=== PATIENT | female | born 1935 | race African-American/Black ===

== ENCOUNTER 2017-11-30 06:29 | Inpatient (IN) | payer OTHER, MEDICAID ==
[~2017-11-30] VITALS: Ht 165.1 cm; Wt 76.7 kg
[2017-11-30] MEDS ORDERED: LEVOFLOXACIN 750MG PREMIX 150 ML IV ONE (08:00)
[2017-11-30 08:04] LABS: BASOPHILS % 0.4 % (0.0-2.0); EOSINOPHILS % 0.3 % (0.0-5.0); HEMATOCRIT. 38.6 % (36.0-48.0); HEMOGLOBIN. 12.7 g/dL (12.0-16.0); MEAN CORPUSCULAR HEMOGLOBIN 29.1 pg (28.0-32.0); MEAN CORPUSCULAR VOLUME 88.2 fL (81.0-99.0); MEAN PLATELET VOLUME 8.2 fl (7.4-10.4); MONOCYTES % 5.3 % (2.0-8.0); PLATELET 247 x1000/uL (130-400); RED BLOOD CELL COUNT 4.38 mill/uL (4.2-5.4)
[2017-11-30 08:11] LABS: INR 1.2; PROTHROMBIN TIME 12.1 sec (9.1-11.1)
[2017-11-30 08:16] LABS: CHLORIDE 102 mEq/L (98-107)
[2017-11-30] MEDS ORDERED: POTASSIUM CHLORIDE 20MEQ TABLET SR PO ONE (08:45)
[2017-11-30] MEDS ORDERED: SODIUM CHLORIDE 0.9% 1,000 ML IV ONE (09:13)
[2017-11-30] MEDS ORDERED: LIDOCAINE HCL/PF 1% 2ML VIAL ONE (10:19)
[2017-11-30] MEDS ORDERED: IPRATROPIUM/ALBUTEROL 0.5-3(2.5)MG/3ML NEB INH PRN (12:00)
[2017-11-30] MEDS ORDERED: ACETAMINOPHEN 325MG TABLET PO PRN (12:00)
[2017-11-30] MEDS ORDERED: CLONIDINE 0.1MG TABLET PO PRN (12:00)
[2017-11-30] MEDS ORDERED: MAGNESIUM/ALUMINUM HYDROXIDE/SIMETHICONE 30ML UDC PO PRN (12:00)
[2017-11-30] MEDS ORDERED: HYDROCODONE/ACETAMINOPHEN 5/325MG TABLET PO PRN (12:00)
[2017-11-30] MEDS ORDERED: ACETAMINOPHEN 650MG SUPP PR PRN (12:00)
[2017-11-30] MEDS ORDERED: ONDANSETRON HCL 4MG/2ML INJ IV PRN (12:00)
[2017-11-30] MEDS ORDERED: DIPHENHYDRAMINE 50MG/ML VIAL IV PRN (12:00)
[2017-11-30] MEDS ORDERED: GUAIFENESIN 200MG/10ML SUGAR FREE UDC PO PRN (12:00)
[2017-11-30 12:24] LABS: BG BASE EXCESS -0.3 mmol/L (-2.0-2.0); BG CARBOXYHEMOGLOBIN 0.6 % (0.5-1.5); BG DEOXYHEMOGLOBIN 7.6 % (0.0-5.0); BG HCO3 ACT 23.1 mmol/L (22.0-26.0); BG METHEMOGLOBIN 0.2 % (0.0-1.5); BG OXYGEN SATURATION 92.3 % (92.0-98.5); BG OXYHEMOGLOBIN 91.6 % (94.0-97.0); BG PCO2 33.9 mmHg (35.0-45.0); BG PH 7.451 (7.350-7.450); BG PO2 63.4 mmHg (75.0-100.0); BG SAMPLE SITE RIGHT RADIAL; BG TOTAL HEMOGLOBIN 12.5 g/dL (12.0-18.0); BG VENT MODE ROOM AIR
[2017-11-30 13:14] LABS: CLARITY URINE CLEAR (CLEAR); COLOR URINE YELLOW (YELLOW); KETONES URINE NEGATIVE (NEGATIVE); LEUKOCYTE ESTERASE URINE TRACE (NEGATIVE); NITRITE URINE POSITIVE (NEGATIVE); OCCULT BLOOD URINE NEGATIVE (NEGATIVE); PH URINE 7.5 (4.5-8.0); PROTEIN URINE NEGATIVE (NEGATIVE); SPECIFIC GRAVITY URINE 1.015 (1.005-1.030)
[2017-11-30 15:09] LABS: CREATINE KINASE 66 IU/L (26-192)
[2017-11-30 15:10] LABS: CREATINE KINASE MB FRACTION < 1.0 ng/mL (0.5-3.6)
[2017-11-30 15:21] LABS: T4 FREE 1.37 ng/dL (0.76-1.46)
[2017-11-30] MEDS ORDERED: REGADENOSON 0.4 MG/5 ML IV NR (16:58)
[2017-11-30 17:06] VITALS: BP 134/66
[2017-11-30] MEDS: PANTOPRAZOLE SODIUM 40 MG/VIAL IV SCH (17:43)
[2017-11-30] MEDS: ENOXAPARIN 40MG/0.4ML SYR SUBCUT SCH (17:44)
[2017-11-30 18:00] VITALS: BP 134/66
[2017-11-30] MEDS ORDERED: NA PHOS,M-B/NA PHOS,DI-BA ENEMA 118ML PR PRN (18:00)
[2017-11-30] MEDS ORDERED: SOTA80TA25 PO (18:00)
[2017-11-30] MEDS ORDERED: AMLO10TA4 MT (18:00)
[2017-11-30] MEDS ORDERED: DABI150C MT (18:00)
[2017-11-30] MEDS ORDERED: IPRATROPIUM/ALBUTEROL 0.5-3(2.5)MG/3ML NEB INH SCH (18:00)
[2017-11-30] MEDS ORDERED: OLME40TA18 MT (18:00)
[2017-11-30] MEDS ORDERED: HYDR25TA MT (18:00)
[2017-11-30] MEDS ORDERED: SIMV20TA6 MT (18:00)
[2017-11-30 20:00] VITALS: BP 104/62
[2017-11-30] MEDS: SOTALOL HCL 80MG TABLET PO SCH (21:00)
[2017-11-30] MEDS: DEXT 5%/0.45% NACL 1000ML 1,000 ML IV SCH (21:42)
[2017-11-30] MEDS: ATORVASTATIN CALCIUM 10MG TABLET PO SCH (21:49)
[2017-11-30 23:22] LABS: CREATINE KINASE 82 IU/L (26-192); CREATINE KINASE MB FRACTION < 1.0 ng/mL (0.5-3.6)
[2017-12-01] VITALS (7 sets, daily range): BP systolic 98–149; BP diastolic 54–94
[2017-12-01 07:58] LABS: BASOPHILS % 0.5 % (0.0-2.0); HEMATOCRIT. 34.4 % (36.0-48.0); HEMOGLOBIN. 11.4 g/dL (12.0-16.0); LYMPHOCYTES % 16.1 % (20.0-50.0); MEAN CORPUSCULAR HEMOGLOBIN 29.5 pg (28.0-32.0); MEAN CORPUSCULAR VOLUME 88.9 fL (81.0-99.0); MEAN PLATELET VOLUME 8.3 fl (7.4-10.4); MONOCYTES % 5.9 % (2.0-8.0); NEUTROPHILS % 76.5 % (40.0-76.0); PLATELET 228 x1000/uL (130-400); RED BLOOD CELL COUNT 3.87 mill/uL (4.2-5.4); RED CELL DISTRIBUTION WIDTH 13.9 % (11.6-14.6)
[2017-12-01] MEDS ORDERED: LEVOFLOXACIN 500MG PREMIX 100 ML IV SCH (08:00)
[2017-12-01 08:25] LABS: CHLORIDE 106 mEq/L (98-107)
[2017-12-01 08:37] LABS: HDL CHOLESTEROL 55 mg/dL (40-59); LDL CHOLESTEROL 54 mg/dL (5-100)
[2017-12-01] MEDS: PANTOPRAZOLE SODIUM 40 MG/VIAL IV SCH (08:40)
[2017-12-01 09:24] LABS: BG BASE EXCESS -4.2 mmol/L (-2.0-2.0); BG DEOXYHEMOGLOBIN 5.3 % (0.0-5.0); BG FRACTION INSPIRED OXYGEN 21; BG METHEMOGLOBIN 0.2 % (0.0-1.5); BG OXYGEN SATURATION 94.6 % (92.0-98.5); BG OXYHEMOGLOBIN 93.5 % (94.0-97.0); BG PCO2 29.6 mmHg (35.0-45.0); BG PH 7.426 (7.350-7.450); BG PO2 72.7 mmHg (75.0-100.0); BG SAMPLE SITE RIGHT RADIAL; BG TOTAL HEMOGLOBIN 12.5 g/dL (12.0-18.0); BG VENT MODE ROOM AIR
[2017-12-01] MEDS ORDERED: REGADENOSON 0.4 MG/5 ML IV ONE (10:49)
[2017-12-01] MEDS ORDERED: POTASSIUM CHLORIDE 20MEQ TABLET SR PO SCH (12:15)
[2017-12-01] MEDS: SOTALOL HCL 80MG TABLET PO SCH ×3 (12:38→21:18)
[2017-12-01] MEDS: ASPIRIN 81MG EC TABLET PO SCH (12:38)
[2017-12-01] MEDS: HYDROCHLOROTHIAZIDE 25MG TABLET PO SCH (12:38)
[2017-12-01] MEDS: AMLODIPINE 2.5MG TABLET PO SCH (12:38)
[2017-12-01] MEDS: DEXT 5%/0.45% NACL 1000ML 1,000 ML IV SCH (13:15)
[2017-12-01] MEDS: ENOXAPARIN 40MG/0.4ML SYR SUBCUT SCH (17:40)
[2017-12-01] MEDS: ATORVASTATIN CALCIUM 10MG TABLET PO SCH (21:14)
[2017-12-02] VITALS: BP 140/75
[2017-12-02 04:00] VITALS: BP 135/81
[2017-12-02 07:44] LABS: BASOPHILS % 0.6 % (0.0-2.0); EOSINOPHILS % 3.7 % (0.0-5.0); HEMATOCRIT. 33.5 % (36.0-48.0); HEMOGLOBIN. 11.2 g/dL (12.0-16.0); LYMPHOCYTES % 29.7 % (20.0-50.0); MEAN CORPUSCULAR HEMOGLOBIN 29.5 pg (28.0-32.0); MEAN CORPUSCULAR VOLUME 88.5 fL (81.0-99.0); MEAN PLATELET VOLUME 8.7 fl (7.4-10.4); MONOCYTES % 9.1 % (2.0-8.0); NEUTROPHILS % 56.9 % (40.0-76.0); PLATELET 227 x1000/uL (130-400); RED BLOOD CELL COUNT 3.79 mill/uL (4.2-5.4)
[2017-12-02 08:00] VITALS: BP 128/75
[2017-12-02] MEDS: PANTOPRAZOLE SODIUM 40 MG/VIAL IV SCH (08:28)
[2017-12-02] MEDS: ASPIRIN 81MG EC TABLET PO SCH (08:28)
[2017-12-02] MEDS: AMLODIPINE 2.5MG TABLET PO SCH (08:29)
[2017-12-02] MEDS: HYDROCHLOROTHIAZIDE 25MG TABLET PO SCH (08:29)
[2017-12-02] MEDS: SOTALOL HCL 80MG TABLET PO SCH (08:29)
[2017-12-02 08:47] LABS: CHLORIDE 107 mEq/L (98-107)
[2017-12-02] MEDS ORDERED: LEVOFLOXACIN 500MG PREMIX 100 ML IV SCH (09:00)
[2017-12-02 12:55] VITALS: BP 113/59
== END 2017-12-02 15:01 | disposition home or self-care (01) | DRG 689 ==
LOC: ER 06:29 → 8WST 08:57 → SUPCPDRO 11:30 → ENRESERV 15:36
PROVIDERS: ADMIT Internal Medicine; ATTEND Internal Medicine
DX: N39.0 Urinary tract infection, site not specified (principal); J18.9 Pneumonia, unspecified organism; E87.3 Alkalosis; R07.81 Pleurodynia; R06.03 Acute respiratory distress; D64.9 Anemia, unspecified; I49.5 Sick sinus syndrome; R73.9 Hyperglycemia, unspecified; E80.6 Other disorders of bilirubin metabolism; E03.9 Hypothyroidism, unspecified; E04.2 Nontoxic multinodular goiter; E78.5 Hyperlipidemia, unspecified; E87.6 Hypokalemia; I11.9 Hypertensive heart disease without heart failure; I25.2 Old myocardial infarction; Z95.0 Presence of cardiac pacemaker
CPT/HCPCS: 36415; 36600; 70490; 71045; 71250; 76536; 78452; 80048; 80061; 82375; 82550; 82553; 82805; 83036; 83605; 84145; 84439; 84443; 84484; 87804; 93005; 93017; 93306; 96365; 97162; 99285; A9500; C1893; C9113; J1650; J1956; J2785; J3490; J7030

== ENCOUNTER 2018-04-12 08:25 | Inpatient (IN) | payer OTHER, MEDICAID ==
[~2018-04-12] VITALS: Ht 165.1 cm; Wt 74.8 kg
[~2018-04-12 08:25] MED LIST: DABI150C MT; HYDR25TA MT; OLME40TA18 MT; SOTA80TA25 PO
[2018-04-12 09:52] LABS: HEMATOCRIT. 41.2 % (36.0-48.0); HEMOGLOBIN. 13.5 g/dL (12.0-16.0); MEAN CORPUSCULAR VOLUME 88.5 fL (81.0-99.0); MEAN PLATELET VOLUME 8.7 fl (7.4-10.4); PLATELET 240 x1000/uL (130-400); RED BLOOD CELL COUNT 4.65 mill/uL (4.2-5.4); RED CELL DISTRIBUTION WIDTH 14.5 % (11.6-14.6)
[2018-04-12 09:57] LABS: CHLORIDE 104 mEq/L (98-107)
[2018-04-12] MEDS ORDERED: ALBUTEROL (0.083%) 2.5MG/3ML NEB HHN STA (10:03)
[2018-04-12] MEDS ORDERED: ASPIRIN 325MG EC TABLET PO ONE (10:15)
[2018-04-12 10:55] LABS: PLATELET ESTIMATE NORMAL
[2018-04-12 23:00] VITALS: BP 145/65
[2018-04-12] MEDS ORDERED: SIMV20TA6 MT (23:45)
[2018-04-13] VITALS: BP 128/74
[2018-04-13] MEDS ORDERED: ONDANSETRON HCL 4MG/2ML INJ IV PRN (00:30)
[2018-04-13] MEDS ORDERED: ACETAMINOPHEN 325MG TABLET PO PRN (00:30)
[2018-04-13] MEDS ORDERED: HYDROCODONE/ACETAMINOPHEN 5/325MG TABLET PO PRN (00:30)
[2018-04-13] MEDS ORDERED: CLONIDINE 0.1MG TABLET PO PRN (00:30)
[2018-04-13] MEDS: LEVOFLOXACIN 500MG PREMIX 100 ML IV SCH (02:21)
[2018-04-13 04:00] VITALS: BP 135/68
[2018-04-13 08:00] VITALS: BP 117/65
[2018-04-13] MEDS: LOSARTAN POTASSIUM 100 MG TABLET PO SCH (08:57)
[2018-04-13] MEDS: HYDROCHLOROTHIAZIDE 25MG TABLET PO SCH (08:58)
[2018-04-13] MEDS: ENOXAPARIN 40MG/0.4ML SYR SUBCUT SCH (08:58)
[2018-04-13] MEDS ORDERED: MEDICATION NOT ON FORMULARY EA (Dabigatran Etexilate Mesylate (Pradaxa) 1 CAP) MT SCH (09:00)
[2018-04-13] MEDS ORDERED: MEDICATION NOT ON FORMULARY EA (Olmesartan Medoxomil 1 TAB) MT SCH (09:00)
[2018-04-13] MEDS ORDERED: MEDICATION NOT ON FORMULARY EA (Simvastatin 1 TAB) MT SCH (09:00)
[2018-04-13 09:47] LABS: CREATINE KINASE 90 IU/L (26-192)
[2018-04-13 12:00] VITALS: BP_SYST 114; BP_SYST 157; BP_DIAS 52; BP_DIAS 84
[2018-04-13] MEDS ORDERED: PNEUMOCOCCAL 23-VAL P-SAC VAC 0.5 ML IM ONE (12:00)
[2018-04-13] MEDS ORDERED: GUAIFENESIN-DM 200MG-20MG/10ML UDC PO PRN (13:45)
[2018-04-13 15:03] LABS: BASOPHILS % 0.9 % (0.0-2.0); EOSINOPHILS % 4.5 % (0.0-5.0); HEMATOCRIT. 42.7 % (36.0-48.0); HEMOGLOBIN. 14.1 g/dL (12.0-16.0); MEAN CORPUSCULAR HEMOGLOBIN 29.1 pg (28.0-32.0); MEAN CORPUSCULAR VOLUME 88.5 fL (81.0-99.0); MEAN PLATELET VOLUME 8.7 fl (7.4-10.4); NEUTROPHILS % 27.6 % (40.0-76.0); PLATELET 264 x1000/uL (130-400); RED BLOOD CELL COUNT 4.83 mill/uL (4.2-5.4)
[2018-04-13 15:22] LABS: CHLORIDE 103 mEq/L (98-107)
[2018-04-13 15:33] LABS: CREATINE KINASE 85 IU/L (26-192)
[2018-04-13 20:00] VITALS: BP 141/75
[2018-04-13] MEDS: IPRATROPIUM/ALBUTEROL 0.5-3(2.5)MG/3ML NEB INH PRN (21:01)
[2018-04-13] MEDS: ATORVASTATIN CALCIUM 10MG TABLET PO SCH (21:32)
[2018-04-14] VITALS: BP 136/79
[2018-04-14] MEDS: LEVOFLOXACIN 500MG PREMIX 100 ML IV SCH (01:54)
[2018-04-14 04:00] VITALS: BP 117/52
[2018-04-14 06:50] LABS: BASOPHILS % 0.8 % (0.0-2.0); EOSINOPHILS % 4.5 % (0.0-5.0); HEMATOCRIT. 39.7 % (36.0-48.0); HEMOGLOBIN. 13.1 g/dL (12.0-16.0); LYMPHOCYTES % 51.7 % (20.0-50.0); MEAN CORPUSCULAR HEMOGLOBIN 28.8 pg (28.0-32.0); MEAN CORPUSCULAR VOLUME 87.1 fL (81.0-99.0); MEAN PLATELET VOLUME 8.8 fl (7.4-10.4); MONOCYTES % 8.7 % (2.0-8.0); NEUTROPHILS % 34.3 % (40.0-76.0); PLATELET 255 x1000/uL (130-400); RED BLOOD CELL COUNT 4.56 mill/uL (4.2-5.4); RED CELL DISTRIBUTION WIDTH 13.8 % (11.6-14.6)
[2018-04-14 07:22] LABS: CHLORIDE 104 mEq/L (98-107)
[2018-04-14 07:39] LABS: LDL CHOLESTEROL 68 mg/dL (5-100); T4 FREE 1.38 ng/dL (0.76-1.46)
[2018-04-14 07:57] LABS: HDL CHOLESTEROL 43 mg/dL (40-59)
[2018-04-14] MEDS: IPRATROPIUM/ALBUTEROL 0.5-3(2.5)MG/3ML NEB INH PRN ×3 (08:17→18:07)
[2018-04-14] MEDS: ENOXAPARIN 40MG/0.4ML SYR SUBCUT SCH (09:10)
[2018-04-14] MEDS: HYDROCHLOROTHIAZIDE 25MG TABLET PO SCH (09:10)
[2018-04-14] MEDS: LOSARTAN POTASSIUM 100 MG TABLET PO SCH (09:10)
[2018-04-14] MEDS ORDERED: LIDOCAINE HCL/PF 1% 2ML VIAL ONE (10:54)
[2018-04-14] MEDS ORDERED: LACTULOSE 20G/30ML UDC PO SCH (12:15)
[2018-04-14 13:19] LABS: BG BASE EXCESS 2.3 mmol/L (-2.0-2.0); BG CARBOXYHEMOGLOBIN 0.7 % (0.5-1.5); BG DEOXYHEMOGLOBIN 5.8 % (0.0-5.0); BG FRACTION INSPIRED OXYGEN 21; BG HCO3 ACT 26.1 mmol/L (22.0-26.0); BG METHEMOGLOBIN 0.2 % (0.0-1.5); BG OXYGEN SATURATION 94.1 % (92.0-98.5); BG OXYHEMOGLOBIN 93.3 % (94.0-97.0); BG PCO2 37.7 mmHg (35.0-45.0); BG PH 7.458 (7.350-7.450); BG PO2 68.8 mmHg (75.0-100.0); BG SAMPLE SITE RIGHT RADIAL; BG TOTAL HEMOGLOBIN 14.1 g/dL (12.0-18.0); BG VENT MODE ROOM AIR
[2018-04-14] MEDS ORDERED: IOHEXOL-350 100 ML BOTTLE ONE (17:03)
[2018-04-14 20:00] VITALS: BP 139/75
[2018-04-14] MEDS: ATORVASTATIN CALCIUM 10MG TABLET PO SCH (20:55)
[2018-04-15] VITALS: BP 149/101
[2018-04-15] MEDS ORDERED: LEVOFLOXACIN 250MG PREMIX 50 ML IV SCH
[2018-04-15 04:00] VITALS: BP 100/54
[2018-04-15 08:00] VITALS: BP 83/51
[2018-04-15 09:07] VITALS: BP 83/51
== END 2018-04-15 09:38 | disposition home or self-care (01) | DRG 153 ==
LOC: ER 08:48 → 7WST 10:32 → EDBEDREQ 10:35 → ENRESERV 21:17
PROVIDERS: ADMIT Internal Medicine; ATTEND Internal Medicine
DX: J06.9 Acute upper respiratory infection, unspecified (principal); J20.9 Acute bronchitis, unspecified; Z95.0 Presence of cardiac pacemaker; E78.5 Hyperlipidemia, unspecified; J42 Unspecified chronic bronchitis; K44.9 Diaphragmatic hernia without obstruction or gangrene; I10 Essential (primary) hypertension; I49.9 Cardiac arrhythmia, unspecified; R06.03 Acute respiratory distress; Z79.899 Other long term (current) drug therapy; Z87.01 Personal history of pneumonia (recurrent)
CPT/HCPCS: 36415; 36600; 71045; 78582; 80048; 80061; 82375; 82550; 82805; 82962; 83880; 84439; 84481; 84484; 85379; 90732; 93005; 94640; 99285; A9558; C1893; J1650; J1956; J3490; J7611; J7620; Q9967

== ENCOUNTER 2019-07-03 22:28 | Emergency (ER) | payer OTHER, MEDICAID ==
[~2019-07-03] VITALS: Ht 165.1 cm; Wt 54.0 kg
[~2019-07-03 22:28] MED LIST changes: +SIMV-43 MT
[2019-07-03] MEDS ORDERED: KETOROLAC 60MG/2ML VIAL IM ONE (23:15)
[2019-07-03] MEDS ORDERED: HYDROCODONE/ACETAMINOPHEN 10/325MG TABLET PO ONE (23:15)
[2019-07-04] MEDS ORDERED: ONDANSETRON HCL 4MG/2ML INJ IV ONE (00:30)
[2019-07-04] MEDS ORDERED: MORPHINE SULFATE 4 MG/ML CPJ (NOT FOR IM USE) IV ONE (00:30)
[2019-07-04 03:00] VITALS: BP 101/42
== END 2019-07-04 04:03 | disposition home or self-care (01) ==
LOC: ER 22:28
DX: G89.29 Other chronic pain (principal); M25.551 Pain in right hip; I48.91 Unspecified atrial fibrillation; E78.00 Pure hypercholesterolemia, unspecified; I10 Essential (primary) hypertension; Z95.0 Presence of cardiac pacemaker; Z79.899 Other long term (current) drug therapy
CPT/HCPCS: 72170; 72192; 96372; 96374; 96375; 99285; J1885; J2270; J2405; 99284